=== PATIENT | female | born 1975 | race Caucasian/White ===

== ENCOUNTER → 2023-12-20 | Outpatient (CLI) | payer BC ==
--- NOTE | 2023-12-24 08:42 | MM ---
Reason for Exam: Screening (asymptomatic). Last mammogram was performed 5 year(s) and 2 month(s) ago. Patient History: Menarche at age 12. First Full-Term at age 37. Late child-bearing (after 30). Paternal grandmother had breast cancer at or over age 50. Last menstrual period: 12/14/2023 Risk Values: Debbie 5 year model risk: 1.3%. NCI Lifetime model risk: 13.8%. Prior Study Comparison: 10/13/2018 Bilateral Screening Mammogram, [place]. Tissue Density: The breasts are heterogeneously dense, which may obscure small masses. Findings: Analyzed By CAD. There is no suspicious group of microcalcifications or new suspicious mass in either breast. Benign-appearing calcifications. Overall Assessment: Benign, BI-RAD 2 Management: Screening Mammogram of both breasts in 1 year. . Patient should continue monthly self-breast exams. A clinical breast exam by your physician is recommended on an annual basis. This exam should not preclude additional follow-up of suspicious palpable abnormalities. Note on Debbie scores and lifetime risk: 1. A Debbie score greater than 3% is considered moderate risk. If this is the case, consider specialist referral to assess eligibility for a risk reducing agent. 2. If overall lifetime risk for the development of breast cancer is 20% or higher, the patient may qualify for future screening with alternating mammogram and breast MRI. Electronically signed and approved by: Alireza Culver M.D. Radiologis
== END | disposition home or self-care (01) ==
LOC: RADMAMWWP 08:18
PROVIDERS: ATTEND Family Medicine
DX: Z12.31 Encounter for screening mammogram for malignant neoplasm of breast (principal); Z80.3 Family history of malignant neoplasm of breast
CPT/HCPCS: 77063; 77067

== ENCOUNTER 2024-04-02 09:30 | Day surgery (SDC) | payer BC ==
[~2024-04-02 09:30] MED LIST: LACTATED RINGERS 1,000 ML BAG ONE
[2024-04-02] MEDS ORDERED: PROPOFOL 10 MG/ML 20 ML VIAL IV ONE (09:32)
[2024-04-02] MEDS ORDERED: LIDOCAINE 1% INJ 10MG/ML (20 ML MDV) ONE (09:32)
--- NOTE | 2024-04-24 10:21 | P.PCN ---
Date of Procedure: 04/02/24 Procedure(s) Performed: This is an addendum for the procedure was performed on 04/02/2024. Procedure performed colonoscopy with snare polypectomy Preoperative diagnosis screening for colon cancer and positive Cologuard Procedure: The scope was advanced into the cecum. Careful examination was performed and the scope was gradually being withdrawn. In the hepatic Exa there was a 1 cm polyp removed by snare polypectomy. In the transverse colon there was a 2 cm polyp removed by snare polypectomy. In the descending colon there was a 1 cm polyp removed by snare polypectomy and in the sigmoid colon there was a 7 mm polyp removed by snare polypectomy.
== END 2024-04-02 10:40 | disposition home or self-care (01) ==
LOC: ORWHC2ENDO 09:30
PROVIDERS: ATTEND Internal Medicine Gastroenterology
DX: D12.3 Benign neoplasm of transverse colon (principal); D12.4 Benign neoplasm of descending colon; D12.5 Benign neoplasm of sigmoid colon; I10 Essential (primary) hypertension; E78.5 Hyperlipidemia, unspecified; E11.9 Type 2 diabetes mellitus without complications; M19.90 Unspecified osteoarthritis, unspecified site; Z79.85 Long-term (current) use of injectable non-insulin antidiabetic drugs; Z79.899 Other long term (current) drug therapy; Z88.1 Allergy status to other antibiotic agents
CPT/HCPCS: 45385; 81025; 88305